=== PATIENT | female | born 1945 | race Caucasian/White ===

== ENCOUNTER 2017-12-16 17:49 | Emergency (ER) | payer MEDICARE, MEDICAID, SELFPAY ==
[2017-05-06 08:50] VITALS: BMI 29.2
[2017-12-16 17:50] VITALS: BP 148/74; PULSE 62; RESP 20; TEMP 36.6; O2SAT 99; BMI 25.6
--- NOTE | 2017-12-16 18:28 | ED.VISSUMM ---
- ER Visit Summary Date of Service: 12/16/17 Chief Complaint: [] Right hip pain History of Present Illness: The patient is a 72 F [] complaining of right hip pain consistent with previously diagnosed sciatica. Patient reports a history of bulging disks in her back. She denies being in pain management. She is requesting analgesia. She reports she is allergic to morphine but can take Dilaudid. She also reports slight discomfort in her right foot secondary to neuropathy from diabetes. No other complaints at this time. She denies injury or increase physical activity as a result of her pain. Physical Examination: [] Afebrile, vital signs stable. Elderly female in no acute distress. Discomfort to the right sacral and lumbosacral area on palpation. Test Results: [] None Emergency Department Course and Treatment: [] Patient given 1.5 mg IM Dilaudid for analgesia. She has 2 adult relatives in the room who will drive her home. She was requesting narcotic analgesia for home. She was encouraged to obtain those medications from her primary care physician. Patient given a short-term prescription for Percocet #10. Treatment Plan: [] Follow-up with PCP or pain management. Disposition: [] Discharge, stable. Impression: [] Acute on chronic back pain This note was generated with [employer] dictation software. It may contain incorrect words, spelling, and punctuation that were not noted in review of the chart prior to signing ED Disposition - Plan for ED Patient: Disposition: Home or Assisted Living Chief Complaint: Other, Pain/Inj Instructions: ED Chronic Pain Management Prescriptions: Oxycodone HCl/Acetaminophen [Percocet 5/325] 1 tab PO Q6H PRN PRN 4 Days #10 tab PRN Reason: Pain Referrals: Ruy Flower MD [Primary Care Provider] - Additional Instructions: Get a pain management doctor.
--- NOTE | 2017-12-16 18:36 | ED.DEP ---
ED Disposition - Plan for ED Patient: Disposition: Home or Assisted Living Chief Complaint: Other, Pain/Inj Instructions: ED Chronic Pain Management Prescriptions: Oxycodone HCl/Acetaminophen [Percocet 5/325] 1 tab PO Q6H PRN PRN 4 Days #10 tab PRN Reason: Pain Referrals: Ruy Flower MD [Primary Care Provider] - Additional Instructions: Get a pain management doctor.
[2017-12-16] MEDS: HYDROmorphone 1 MG/ML Syringe 1.5 MG SC (18:39)
[2017-12-16 19:14] VITALS: PULSE 64; RESP 16; O2SAT 97
== END 2017-12-16 19:15 | disposition home or self-care (01) ==
LOC: ED 18:49
PROVIDERS: Emergency Provider Emergency Medicine; Family Provider Internal Medicine; PCP Internal Medicine
DX: M54.5 Low back pain (principal); G89.29 Other chronic pain; E11.9 Type 2 diabetes mellitus without complications; Z79.4 Long term (current) use of insulin; E66.9 Obesity, unspecified; Z68.25 Body mass index [BMI] 25.0-25.9, adult; Z79.82 Long term (current) use of aspirin; Z79.899 Other long term (current) drug therapy; Z72.0 Tobacco use
CPT/HCPCS: 96372; 99282

== ENCOUNTER 2018-01-30 10:22 | Day surgery (SDC) | payer MEDICARE, MEDICAID, SELFPAY ==
[2017-05-06 08:50] VITALS: BMI 29.2
[2018-01-30 10:52] VITALS: BP 161/70; PULSE 67; RESP 16; TEMP 36.3; O2SAT 96; BMI 25.3
[2018-01-30 11:25] LABS: Bedside Glucose 126 mg/dL (70-110)
--- NOTE | 2018-01-30 11:25 | RAD_ITS ---
PROCEDURE: Caudal block. DATE OF EXAMINATION: January 30, 2018. INDICATION: Female, 72 years old. Low back pain. FLUOROSCOPY TIME (if supplied): (0:10) minutes/seconds Intraoperative imaging provided for caudal block. A spinal needle is seen along the mid inferior portion of the sacrum. RAD/Fluor Guidance for Spine Inj IMPRESSION: Intraoperative imaging provided for caudal block. Electronically Signed: Esdras Ariza MD at 15:56 EDT Tel [phone], Service support ,
[2018-01-30] MEDS: Bupivacaine 0.25% 30 ML Vial (11:32)
[2018-01-30] MEDS: MethylPREDNISolone Acetate 80 MG/ML Vial (11:32)
[2018-01-30 11:39] VITALS: BP 146/69; BP 161/70; PULSE 74; RESP 16; TEMP 36.4; O2SAT 100
[2018-01-30 11:44] VITALS: BP 155/58; BP 161/70; PULSE 74; RESP 16; O2SAT 96
[2018-01-30 11:49] VITALS: BP 161/70; BP 167/66; PULSE 74; RESP 16; O2SAT 95
[2018-01-30 11:55] VITALS: BP 161/70; BP 175/60; PULSE 72; RESP 16; TEMP 35.9; O2SAT 93
--- NOTE | 2018-01-30 12:11 | OP.PCM_ITS ---
Problem List (1) Disc degeneration, lumbosacral Status: Chronic (2) Radiculopathy of lumbosacral region Status: Chronic Report of Operation Date of Procedure: 01/30/18 Pre-Operative Diagnosis: Lumbosacral radiculopathy, lumbosacral degenerative disc disease, lumbosacral spinal stenosis Post-Operative Diagnosis: Lumbosacral radiculopathy, lumbosacral degenerative disc disease, lumbosacral spinal stenosis Surgery/Procedure Performed:: Diagnostic/therapeutic caudal epidural steroid injection Description of Surgical Findings:: PROCEDURE: Caudal epidural steroid injection PREOPERATIVE DIAGNOSIS: Lumbosacral radiculopathy, lumbosacral degenerative disc disease, lumbosacral spinal stenosis POSTOPERATIVE DIAGNOSIS: Lumbosacral radiculopathy, lumbosacral degenerative disc disease, lumbosacral spinal stenosis ANESTHESIA: MAC COMPLICATIONS: None BLOOD LOSS: Minimal PROCEDURE IN DETAIL: History and physical today was reviewed. Risks and benefits of the procedure were explained. The patient understood, agreed to our procedure, and informed consent was obtained. IV inserted per routine protocol. The patient was taken to the operating room, placed in a prone position with a pillow positioned underneath the abdomen. The lower back and tailbone area was prepped and draped in a sterile fashion using iodine ?3 under fluoroscopy guidance on the lateral view the caudal space was identified the skin and subcutaneous tissue and size approximately 3 cc of 1 % lidocaine using a 25-gauge regular needle under direct visualization fluoroscopy using the lateral approach using a 22-gauge 3-1/2 inch spinal needle the needle was advanced via the skin through the sacral hiatus, tip of the needle passed through the sacrococcygeal ligament advanced approximately S4 area after negative aspiration for blood or CSF a total of 3 cc of contrast were injected to confirm correct placement of the needle as well as cephalad spread the spread was followed to approximately L5 area after confirmation AP as well as lateral view repeated negative aspiration a total of 15 cc of preservative-free 0.125% Marcaine with 80 mg of the portal was injected easily. The needles were then removed intact. The patient experienced no signs or symptoms intrathecal, intravascular injection. The patient experienced no paraesthesia. The procedure was completed without any apparent difficult, any complication. The patient appeared to tolerate well. ASSESSMENT AND PLAN: This is a 72-year-old female with lumbosacral radiculopathy, lumbosacral degenerative disc disease, lumbosacral spinal stenosis status post caudal epidural steroid injection. The patient will continue his current medications. The patient will follow in approximately 2 weeks for possible repeat of the procedure if indicated.
[2018-01-30 13:41] VITALS: BP 161/70
== END 2018-01-30 13:43 | disposition home or self-care (01) ==
LOC: SDC 10:23 → AC 10:30
PROVIDERS: Family Provider Internal Medicine; PCP Internal Medicine; Visit Provider Anesthesiology Pain Medicine
PROC: 3E0S3BZ Introduction of Anesthetic Agent into Epidural Space, Percutaneous Approach (ICD-10-PCS; CPT 62282; principal; 2018-01-30 11:40)
DX: M51.17 Intervertebral disc disorders with radiculopathy, lumbosacral region (principal); R20.2 Paresthesia of skin; M48.07 Spinal stenosis, lumbosacral region; I25.10 Atherosclerotic heart disease of native coronary artery without angina pectoris; I45.10 Unspecified right bundle-branch block; I25.2 Old myocardial infarction; I12.9 Hypertensive chronic kidney disease with stage 1 through stage 4 chronic kidney disease, or unspecified chronic kidney disease; N18.9 Chronic kidney disease, unspecified; I69.311 Memory deficit following cerebral infarction; F17.200 Nicotine dependence, unspecified, uncomplicated; R06.09 Other forms of dyspnea; Z95.1 Presence of aortocoronary bypass graft; Z95.5 Presence of coronary angioplasty implant and graft; F32.9 Major depressive disorder, single episode, unspecified; F41.9 Anxiety disorder, unspecified; I73.9 Peripheral vascular disease, unspecified; E11.9 Type 2 diabetes mellitus without complications; Z79.4 Long term (current) use of insulin; K74.60 Unspecified cirrhosis of liver; Z79.82 Long term (current) use of aspirin; Z79.899 Other long term (current) drug therapy; Z79.891 Long term (current) use of opiate analgesic; Z85.3 Personal history of malignant neoplasm of breast; Z86.19 Personal history of other infectious and parasitic diseases; Z86.718 Personal history of other venous thrombosis and embolism
CPT/HCPCS: 62323; 77003; 82962; J7120; J3490